=== PATIENT | male | born 1965 | race Hispanic/Latino ===

== ENCOUNTER 2021-04-03 14:32 | Outpatient (CLI) | payer OTHER | END 2021-04-03 14:33 | disposition home or self-care (01) | LOC: BICRAD 14:32 | PROVIDERS: ATTEND Family Medicine | DX: M25.512 Pain in left shoulder (principal); M25.562 Pain in left knee; R06.02 Shortness of breath; M17.12 Unilateral primary osteoarthritis, left knee | CPT/HCPCS: 71046 ==

== ENCOUNTER 2023-07-31 08:19 | Outpatient (CLI) | payer OTHER | END 2023-07-31 08:20 | disposition home or self-care (01) | LOC: EDBD → RAD-FRANK 08:19 | PROVIDERS: ATTEND Nurse Practitioner Family | DX: S69.92XA Unspecified injury of left wrist, hand and finger(s), initial encounter (principal) ==

== ENCOUNTER 2023-08-13 17:00 | Outpatient (CLI) | payer OTHER | END 2023-08-13 17:01 | disposition home or self-care (01) | LOC: SLEEPLAB 17:00 | PROVIDERS: ATTEND Nurse Practitioner Family | DX: G47.33 Obstructive sleep apnea (adult) (pediatric) (principal); E66.9 Obesity, unspecified; I10 Essential (primary) hypertension; R06.83 Snoring | CPT/HCPCS: 95800 ==

== ENCOUNTER 2024-09-09 08:28 | Outpatient (CLI) | payer OTHER | END 2024-09-09 08:29 | disposition home or self-care (01) | LOC: CT 08:28 | PROVIDERS: ATTEND Nurse Practitioner Family | DX: G43.C0 Periodic headache syndromes in child or adult, not intractable (principal) | CPT/HCPCS: 70450 ==